=== PATIENT | male | born 2005 | race Asian ===

== ENCOUNTER 2025-03-16 16:12 | Outpatient (CLI) | payer OTHER, SELFPAY | END 2025-03-16 16:13 | disposition home or self-care (01) | PROVIDERS: Visit Provider Family Medicine | DX: R41.82 Altered mental status, unspecified (principal) | CPT/HCPCS: A0425; A0427 ==

== ENCOUNTER 2025-03-16 16:39 | Emergency (ER) | payer OTHER, SELFPAY ==
[2025-03-16] VITALS (34 sets, daily range): BP systolic 112–143; BP diastolic 63–75; PULSE 69–118; RESP 12–29; TEMP 37.1; O2SAT 92–100; BMI 22.2
--- NOTE | 2025-03-16 17:10 | CRLHL7_ITS ---
For Patients: As a result of the Century Cures Act, medical imaging exams and procedure reports are released immediately into your electronic medical record. You may view this report before your referring provider. If you have questions, please contact your health care provider. TECHNIQUE: Multiplanar CT examination of the head was performed without the use of intravenous contrast. INDICATION: Trauma. COMPARISON: None. FINDINGS: No loss of wright-white differentiation to suggest recent territorial infarct. No intracranial hemorrhage, abnormal extra-axial fluid collection, hydrocephalus or midline shift. The ventricles and cerebral sulci are normal in caliber. The basal cisterns are patent. Right maxillary sinus retention cyst. [id number] mucosal thickening of the left maxillary sinus. The orbits and calvarium are unremarkable. The cerebellar tonsils are normal position. IMPRESSION: No intracranial hemorrhage or midline shift. No acute skull fractures. Please note that all CT scans at this facility use dose modulation, iterative reconstruction, and/or weight-based dosing when appropriate to reduce radiation dose to as low as reasonably achievable. Dictated by Jean Paul Esparza MD @ 03/16/2025 6:16:34 PM (Electronically Signed)
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
[2025-03-16 17:58] LABS: Hematocrit 44.0 % (37.0-53.0); Hemoglobin* 15.3 gm/dL (13.5-17.5); Immature Granulocytes Abs Auto 0.01 K/uL (0.00-0.30); Immature Granulocytes Pct Auto 0.1 %; Lymphocytes Absolute Auto 1.30 K/uL (0.90-2.90); Mean Corpuscular HGB Conc 35 gm/dL (32-36); Mean Corpuscular Hemoglobin 30 pg (26-34); Mean Corpuscular Volume 86 fL (80-100); RDW Coefficient of Variation % 11.8 % (11.5-15.5); Red Blood Count 5.11 m/uL (4.30-5.90); White Blood Count* 7.25 K/uL (4.50-11.00)
[2025-03-16 18:00] LABS: Slide Review Reflex No
[2025-03-16 18:19] LABS: Albumin* 4.6 g/dL (3.3-5.0); Chloride* 108 mmol/L (96-114)
[2025-03-16 18:20] LABS: Potassium* 3.7 mmol/L (3.6-5.1); Sodium* 144 mmol/L (135-149)
[2025-03-16 18:22] LABS: Alanine Aminotransferase* 22 U/L (4-50); Anion Gap 10 mEq/L (7-15); Aspartate Amino Transferase* 31 U/L (12-35); Blood Urea Nitrogen* 8 mg/dL (5-24); Calcium* 8.7 mg/dL (8.4-10.6); Carbon Dioxide* 26 mmol/L (20-32); Creatinine* 1.0 mg/dL (0.5-1.5); Est. Creatinine Clearance* 112.45; Estimated Glomerular Filt Rate 110 ml/min; Glucose* 103 mg/dL (60-115); Total Protein* 7.7 g/dL (6.0-8.3)
[2025-03-16 18:23] LABS: Alkaline Phosphatase* 81 U/L (40-150); Bilirubin Direct* 0.0 mg/dL (0.0-0.5); Bilirubin Total* 0.4 mg/dL (0.1-1.5); Ethanol* 0.26 % (0.01-0.03)
[2025-03-16 18:24] LABS: Acetaminophen* < 10.0 ug/mL (10.0-30.0); Salicylate* < 1.0 mg/dL (1.0-10)
[2025-03-16 19:22] LABS: Cannabinoid Screen Urine POSITIVE (Negative); Methamphetamines Screen Urine Negative (Negative); Tricyclic Antidepressant Urine Negative (Negative)
[2025-03-16 19:24] LABS: Appearance Urine Clear (Clear)
[2025-03-17] VITALS (22 sets, daily range): BP systolic 126; BP diastolic 80; PULSE 61–101; RESP 10–19; O2SAT 95–99
== END 2025-03-17 07:45 | disposition home or self-care (01) ==
PROVIDERS: Emergency Provider Family Medicine
DX: M54.2 Cervicalgia (principal); F10.129 Alcohol abuse with intoxication, unspecified; V43.51XA Car driver injured in collision with sport utility vehicle in traffic accident, initial encounter
CPT/HCPCS: 36415; 70450; 72125; 80048; 80076; 80143; 80179; 80306; 81001; 82077; 85025; 94761; 99284; 99285; J7030